=== PATIENT | female | born 1945 | race Caucasian/White ===

== ENCOUNTER 2018-09-10 13:31 | Inpatient (IN) | payer MEDICARE ==
[2018-09-10 14:11] LABS: Glucose,Whole Blood >600 mg/dL (75-99)
[2018-09-10] MEDS ORDERED: SODIUM CHLORIDE 0.9% 500 ML 500 ML IV STA ×2 (14:12→15:08)
--- NOTE | 2018-09-10 14:15 | ED ---
General Adult HPI - General Chief complaint: Recheck/Abnormal Lab/Rx Stated complaint: Diabetic Time Seen by Provider: 09/10/18 13:34 Source: patient, RN notes reviewed Mode of arrival: EMS Limitations: no limitations - History of Present Illness Initial comments: Patient is a pleasant 72-year-old female presenting to the emergency department with concerns for hyperglycemia. Patient states the past few days her blood sugars have been running high. Sometimes the blood sugars are too high to be read on the meter. Patient does admit to having dry mouth and increased thirst recently. No cough or dyspnea. No chest pain. No weakness or confusion. No polyuria. Patient is known diabetic since age 19. - Related Data Home Medications Medication Instructions Recorded Confirmed Donepezil [Aricept] 10 mg PO HS 09/10/18 09/10/18 INSULIN ASPART (NovoLOG) [NovoLOG See Protocol SQ TID 09/10/18 09/10/18 (formulary)] Insulin Degludec [Tresiba] 10 units SQ HS 09/10/18 09/10/18 Isosorbide Mononitrate ER [Imdur] 30 mg PO DAILY 09/10/18 09/10/18 Levothyroxine Sodium [Synthroid] 200 mcg PO DAILY 09/10/18 09/10/18 Lisinopril-Hctz 10-12.5 mg 0.5 tab PO DAILY 09/10/18 09/10/18 [Zestoretic 10-12.5] Memantine HCl [Memantine HCl ER] 28 mg PO DAILY 09/10/18 09/10/18 Sertraline [Zoloft] 25 mg PO DAILY 09/10/18 09/10/18 Simvastatin 40 mg PO HS 09/10/18 09/10/18 Allergies Allergy/AdvReac Type Severity Reaction Status Date / Time iodine Allergy Nausea & Verified 09/10/18 14:06 Vomiting Review of Systems ROS Statement: Those systems with pertinent positive or pertinent negative responses have been documented in the HPI. ROS Other: All systems not noted in ROS Statement are negative. Constitutional: Denies: fever Eyes: Denies: eye pain ENT: Denies: ear pain Respiratory: Denies: cough, dyspnea Cardiovascular: Denies: chest pain Endocrine: Reports: polydipsia. Denies: polyuria Gastrointestinal: Denies: abdominal pain Genitourinary: Denies: urgency Musculoskeletal: Denies: back pain Skin: Denies: rash Neurological: Denies: headache, weakness Past Medical History Past Medical History: Memory Impairment Additional Past Medical History / Comment(s): Type 1 DM (no insulin pump) History of Any Multi-Drug Resistant Organisms: None Reported Additional Past Surgical History / Comment(s): cyst removal Past Psychological History: Anxiety Smoking Status: Never smoker Past Alcohol Use History: Occasional Past Drug Use History: None Reported General Exam Limitations: no limitations General appearance: alert, in no apparent distress Head exam: Present: atraumatic Eye exam: Present: normal appearance, PERRL ENT exam: Present: normal oropharynx Neck exam: Present: normal inspection Respiratory exam: Present: normal lung sounds bilaterally Cardiovascular Exam: Present: regular rate, normal rhythm GI/Abdominal exam: Present: soft. Absent: tenderness Extremities exam: Present: normal inspection Neurological exam: Present: alert Psychiatric exam: Present: normal affect, normal mood Skin exam: Present: normal color Course Vital Signs 09/10/18 13:57 Temperature 98.2 F Pulse Rate 71 Respiratory 18 Rate Blood Pressure 105/31 O2 Sat by Pulse 100 Oximetry EKG Findings - EKG Comments: EKG Findings:: EKG shows paced rhythm at 63. MO 212. QRS 112. QT 446. QTc 46. Left axis. Normal QRS. No acute ST change. Medical Decision Making - Medical Decision Making Patient reevaluated and resting comfortably in bed. Patient and family updated on results and plan. Calculated osmolarity 331. Patient more likely ascending with HHS in DKA. Case was discussed in detail with . sheet will admit covering for hospital call. IV fluids have been provided. Insulin will also be provided. - Lab Data Result diagrams: 09/10/18 14:11 09/10/18 14:11 Lab Results 09/10/18 09/10/18 09/10/18 Range/Units 14:08 14:11 14:11 WBC 6.6 (3.8-10.6) k/uL RBC 3.30 L (3.80-5.40) m/uL Hgb 9.8 L (11.4-16.0) gm/dL Hct 34.5 (34.0-46.0) % MCV 104.4 H (80.0-100.0) fL MCH 29.5 (25.0-35.0) pg MCHC 28.3 L (31.0-37.0) g/dL RDW 13.2 (11.5-15.5) % Plt Count 239 (150-450) k/uL Neutrophils % 85 % Lymphocytes % 9 % Monocytes % 4 % Eosinophils % 0 % Basophils % 1 % Neutrophils # 5.6 (1.3-7.7) k/uL Lymphocytes # 0.6 L (1.0-4.8) k/uL Monocytes # 0.3 (0-1.0) k/uL Eosinophils # 0.0 (0-0.7) k/uL Basophils # 0.0 (0-0.2) k/uL Hypochromasia Marked Macrocytosis Slight Sodium 128 L (137-145) mmol/L Potassium 6.1 H* (3.5-5.1) mmol/L Chloride 91 L (98-107) mmol/L Carbon Dioxide 9 L* (22-30) mmol/L Anion Gap 28 mmol/L BUN 62 H (7-17) mg/dL Creatinine 1.74 H (0.52-1.04) mg/dL Est GFR (CKD-EPI)AfAm 34 (>60 ml/min/1.73 sqM) Est GFR (CKD-EPI)NonAf 29 (>60 ml/min/1.73 sqM) Glucose 957 H* (74-99) mg/dL POC Glucose (mg/dL) >600 H (75-99) mg/dL POC Glu Ballroom Dance Instructor ID Ene Lemons Osmolality (280-301) mosm/kg Calcium 9.6 (8.4-10.2) mg/dL Phosphorus 7.5 H (2.5-4.5) mg/dL Magnesium 2.1 (1.6-2.3) mg/dL Total Bilirubin 0.6 (0.2-1.3) mg/dL AST 19 (14-36) U/L ALT 22 (9-52) U/L Alkaline Phosphatase 59 (38-126) U/L Troponin I (0.000-0.034) ng/mL Total Protein 6.2 L (6.3-8.2) g/dL Albumin 4.0 (3.5-5.0) g/dL Acetone, Qual Positive (Negative) 09/10/18 09/10/18 Range/Units 14:11 14:11 WBC (3.8-10.6) k/uL RBC (3.80-5.40) m/uL Hgb (11.4-16.0) gm/dL Hct (34.0-46.0) % MCV (80.0-100.0) fL MCH (25.0-35.0) pg MCHC (31.0-37.0) g/dL RDW (11.5-15.5) % Plt Count (150-450) k/uL Neutrophils % % Lymphocytes % % Monocytes % % Eosinophils % % Basophils % % Neutrophils # (1.3-7.7) k/uL Lymphocytes # (1.0-4.8) k/uL Monocytes # (0-1.0) k/uL Eosinophils # (0-0.7) k/uL Basophils # (0-0.2) k/uL Hypochromasia Macrocytosis Sodium (137-145) mmol/L Potassium (3.5-5.1) mmol/L Chloride (98-107) mmol/L Carbon Dioxide (22-30) mmol/L Anion Gap mmol/L BUN (7-17) mg/dL Creatinine (0.52-1.04) mg/dL Est GFR (CKD-EPI)AfAm (>60 ml/min/1.73 sqM) Est GFR (CKD-EPI)NonAf (>60 ml/min/1.73 sqM) Glucose (74-99) mg/dL POC Glucose (mg/dL) (75-99) mg/dL POC Glu Ballroom Dance Instructor ID Osmolality 343 H* (280-301) mosm/kg Calcium (8.4-10.2) mg/dL Phosphorus (2.5-4.5) mg/dL Magnesium (1.6-2.3) mg/dL Total Bilirubin (0.2-1.3) mg/dL AST (14-36) U/L ALT (9-52) U/L Alkaline Phosphatase (38-126) U/L Troponin I 0.015 (0.000-0.034) ng/mL Total Protein (6.3-8.2) g/dL Albumin (3.5-5.0) g/dL Acetone, Qual (Negative) - Radiology Data Radiology results: image reviewed (Chest x-ray shows no acute process) Critical Care Time Critical Care Time: Yes Total Critical Care Time: 35 Disposition Clinical Impression: Hyperosmolar syndrome, Hyperglycemia Disposition: ADMITTED IP TO THIS HOSP Condition: Serious Is patient prescribed a controlled substance at d/c from ED?: No Referrals: Nonstaff,Physician [Primary Care Provider] - 1-2 days Decision Time: 15:49
[2018-09-10 14:24] LABS: Basophils % (A) 1 %; Eosinophils % (A) 0 %; HCT 34.5 % (34.0-46.0); HGB 9.8 gm/dL (11.4-16.0); Hypochromasia Marked; Lymphocytes # (A) 0.6 k/uL (1.0-4.8); Lymphocytes % (A) 9 %; MCH 29.5 pg (25.0-35.0); MCHC 28.3 g/dL (31.0-37.0); MCV 104.4 fL (80.0-100.0); Macrocytosis Slight; Mean Platelet Volume 8.2; Monocytes # (A) 0.3 k/uL (0-1.0); Monocytes % (A) 4 %; Neutrophils # (A) 5.6 k/uL (1.3-7.7); Neutrophils % (A) 85 %; Platelet Count 239 k/uL (150-450); RDW 13.2 % (11.5-15.5); WBC 6.6 k/uL (3.8-10.6)
[2018-09-10 14:50] LABS: ALT 22 U/L (9-52); AST 19 U/L (14-36); African American GFR (CKD) 34 (>60 ml/min/1.73 sqM); Alkaline Phosphatase 59 U/L (38-126); Anion Gap 28 mmol/L; Blood Urea Nitrogen 62 mg/dL (7-17); Calcium 9.6 mg/dL (8.4-10.2); Chloride 91 mmol/L (98-107); Magnesium 2.1 mg/dL (1.6-2.3); Phosphorus 7.5 mg/dL (2.5-4.5); Sodium 128 mmol/L (137-145); Total Bilirubin 0.6 mg/dL (0.2-1.3); Total Protein 6.2 g/dL (6.3-8.2)
[2018-09-10 15:01] LABS: Carbon Dioxide 9 mmol/L (22-30)
[2018-09-10 15:02] LABS: Glucose 957 mg/dL (74-99); Potassium 6.1 mmol/L (3.5-5.1)
[2018-09-10] MEDS ORDERED: SODIUM CHLORIDE 0.9% 1,000 ML IV STA (15:08)
--- NOTE | 2018-09-10 15:10 | XR ---
EXAMINATION TYPE: XR chest 2V DATE OF EXAM: 09/10/2018 COMPARISON: NONE HISTORY: Diabetes. Weakness. TECHNIQUE: Frontal and lateral views of the chest are obtained. FINDINGS: There is no heart failure nor confluent pneumonic infiltrate. Heart is mildly enlarged. Th ere is a left axillary pacemaker. There are chest leads. Costophrenic angles are clear. Bony thorax appears intact. IMPRESSION: No active cardiopulmonary disease.
[2018-09-10] MEDS ORDERED: INSULIN REGULAR BOLUS (FROM DRIP BAG) IV ONE (15:53)
[2018-09-10] MEDS: SODIUM CHLORIDE 0.9% 1,000 ML IV SCH ×2 (16:27→22:19)
[2018-09-10] MEDS: INSULIN REGULAR 100 UNIT in SODIUM CHLORIDE 0.9% 100 ML IV SCH (16:33)
[2018-09-10 17:07] LABS: Glucose,Whole Blood >600 mg/dL (75-99)
[2018-09-10 18:03] LABS: Glucose,Whole Blood >600 mg/dL (75-99)
[2018-09-10 18:05] VITALS: BMI 26.4
[2018-09-10 18:54] LABS: Glucose,Whole Blood >600 mg/dL (75-99)
[2018-09-10 19:19] LABS: Phosphorus 8.5 mg/dL (2.5-4.5); Potassium 5.3 mmol/L (3.5-5.1)
[2018-09-10 22:31] LABS: Phosphorus 4.9 mg/dL (2.5-4.5); Potassium 5.1 mmol/L (3.5-5.1)
[2018-09-11] MEDS: INSULIN REGULAR 100 UNIT in SODIUM CHLORIDE 0.9% 100 ML IV SCH (00:20)
[2018-09-11 01:04] LABS: Glucose,Whole Blood 336 mg/dL (75-99)
[2018-09-11] MEDS: D5-0.45% NACL WITH KCL 20MEQ/L 1,000 ML IV SCH ×3 (02:21→13:10)
[2018-09-11] MEDS: SODIUM CHLORIDE 0.9% 1,000 ML IV SCH ×3 (02:22→05:06)
[2018-09-11 02:39] LABS: Glucose,Whole Blood 213 mg/dL (75-99)
[2018-09-11 03:59] LABS: Glucose,Whole Blood 135 mg/dL (75-99)
[2018-09-11 03:59] LABS: Glucose,Whole Blood 164 mg/dL (75-99)
[2018-09-11 04:57] LABS: HCT 26.7 % (34.0-46.0); HGB 8.8 gm/dL (11.4-16.0); MCH 30.1 pg (25.0-35.0); MCHC 32.8 g/dL (31.0-37.0); Mean Platelet Volume 7.9; Platelet Count 221 k/uL (150-450); RBC 2.92 m/uL (3.80-5.40); RDW 13.3 % (11.5-15.5); WBC 8.7 k/uL (3.8-10.6)
[2018-09-11 05:01] LABS: MCV 91.7 fL (80.0-100.0)
[2018-09-11 05:05] LABS: Glucose,Whole Blood 122 mg/dL (75-99)
[2018-09-11 05:07] LABS: Phosphorus 3.7 mg/dL (2.5-4.5); Potassium 4.5 mmol/L (3.5-5.1)
[2018-09-11 06:35] LABS: Glucose,Whole Blood 107 mg/dL (75-99)
[2018-09-11 06:58] LABS: Glucose,Whole Blood 119 mg/dL (75-99)
[2018-09-11 08:23] LABS: Glucose,Whole Blood 130 mg/dL (75-99)
[2018-09-11 09:17] LABS: Glucose,Whole Blood 172 mg/dL (75-99)
--- NOTE | 2018-09-11 09:54 | P.HPIM ---
History of Present Illness This is a pleasant 72 years old female with past medical history of dementia/memory impairment, diabetes mellitus, hypothyroidism, coronary artery disease status post stent placement. Patient presents because her found her with altered mental status in the morning and he called 911. Patient states that she follows up with Dr. West's Marilee who changed her insulin regimen treated recently because her sugar was uncontrolled, she is taking no follow-up with sliding scale plus Tarceva insulin 10 units at bedtime. As per she has been forgetting to take her insulin at times, and other times she weighs 41- 2 hours before she takes her insulin. Yesterday morning patient says that she will cover and she was feeling tired she takes her sugar wasn't 400 but instead of taking her insulin she went back to sleep before her found her with altered mental status. Patient denies chest pain or dyspnea. No change in urine or bowel habits. No rash or redness. No headache or weakness or abnormal sensation. No coughing or respiratory symptoms. No dysuria. No fever Patient vitals stable, on admission her labs were abnormal showing increased creatinine of 1.7, unknown baseline, carbon dioxide 9, sugar was 957 elevated, anion gap was within normal limits at 28, sodium 128 in view of hyperglycemia, serum osmolalities elevated at 323, liver enzymes not elevated. Troponin is negative. And after therapy currently her creatinine came down to 1.5, sodium 135, glucose 107-172. EKG showing atrial paced rhythm. Chest x-ray: No acute process. On admission patient was admitted to the ICU, she was treated with IV fluids and insulin drip as per protocol. Patient showed interval improvement. Review of Systems CONSTITUTIONAL: No fever, no malaise, no fatigue. HEENT: No recent visual problems or hearing problems. Denied any sore throat. CARDIOVASCULAR: No orthopnea, PND, no palpitations, no syncope. PULMONARY: No shortness of breath, no cough, no hemoptysis. GASTROINTESTINAL: No diarrhea, no nausea, no vomiting, no abdominal pain. Normoactive bowel sounds. NEUROLOGICAL: No headaches, no weakness, no numbness. HEMATOLOGICAL: Denies any bleeding or petechiae. GENITOURINARY: Denies any burning micturition, frequency, or urgency. MUSCULOSKELETAL/RHEUMATOLOGICAL: Denies any joint pain, swelling, or any muscle pain. ENDOCRINE: Denies any polyuria or polydipsia. Past Medical History Past Medical History: Chest Pain / Angina, Dementia, Diabetes Mellitus, Memory Impairment, Thyroid Disorder Additional Past Medical History / Comment(s): Type 1 DM (no insulin pump), early stages of dementia History of Any Multi-Drug Resistant Organisms: None Reported Past Surgical History: Heart Catheterization With Stent Additional Past Surgical History / Comment(s): cyst removal, cath and stents placed while in [place] 2018, colonoscopy normal Past Anesthesia/Blood Transfusion Reactions: Postoperative Nausea & Vomiting (PONV) Date of Last Stent Placement:: 03/26/2018 Past Psychological History: Anxiety, Depression Smoking Status: Never smoker Past Alcohol Use History: Occasional Past Drug Use History: None Reported - Past Family History Mother Family Medical History: Cancer Father Family Medical History: Cancer, Coronary Artery Disease (CAD) Medications and Allergies Home Medications Medication Instructions Recorded Confirmed Type Donepezil [Aricept] 10 mg PO HS 09/10/18 09/10/18 History INSULIN ASPART (NovoLOG) [NovoLOG See Protocol SQ TID 09/10/18 09/10/18 History (formulary)] Insulin Degludec [Tresiba] 10 units SQ HS 09/10/18 09/10/18 History Isosorbide Mononitrate ER [Imdur] 30 mg PO DAILY 09/10/18 09/10/18 History Levothyroxine Sodium [Synthroid] 200 mcg PO DAILY 09/10/18 09/10/18 History Lisinopril-Hctz 10-12.5 mg 0.5 tab PO DAILY 09/10/18 09/10/18 History [Zestoretic 10-12.5] Memantine HCl [Memantine HCl ER] 28 mg PO DAILY 09/10/18 09/10/18 History Sertraline [Zoloft] 25 mg PO DAILY 09/10/18 09/10/18 History Simvastatin 40 mg PO HS 09/10/18 09/10/18 History Allergies Allergy/AdvReac Type Severity Reaction Status Date / Time iodine Allergy Nausea & Verified 09/10/18 14:06 Vomiting Physical Exam Vitals: Vital Signs Temp Pulse Pulse Resp BP BP Pulse Ox 09/11/18 08:00 60 17 107/45 100 09/11/18 07:00 60 15 110/48 100 09/11/18 06:00 60 15 116/50 99 09/11/18 05:00 60 19 113/70 94 L 09/11/18 04:00 98.2 F 64 19 90/40 98 09/11/18 03:00 63 18 103/47 100 09/11/18 02:00 61 19 104/44 99 09/11/18 01:00 64 18 105/42 99 09/11/18 00:18 67 11 L 108/42 97 09/11/18 00:00 65 20 116/47 94 L 09/10/18 23:00 67 14 124/45 93 L 09/10/18 22:30 69 17 130/46 95 09/10/18 22:00 70 17 126/44 96 09/10/18 21:30 73 16 111/44 96 09/10/18 21:00 74 18 123/47 96 09/10/18 20:30 68 18 120/54 98 09/10/18 20:00 98.0 F 70 10 L 122/46 97 09/10/18 19:30 71 18 109/36 95 09/10/18 19:00 73 14 114/48 92 L 09/10/18 18:30 70 27 H 126/52 96 09/10/18 18:00 75 21 114/48 98 09/10/18 17:54 97.5 F L 73 18 121/46 98 09/10/18 17:30 71 11 L 104/34 09/10/18 17:08 99 09/10/18 17:00 98.1 F 61 18 107/55 09/10/18 15:30 59 L 20 109/38 100 09/10/18 15:00 66 20 101/34 100 09/10/18 14:30 65 16 105/31 100 09/10/18 14:00 64 132/108 100 09/10/18 13:57 98.2 F 71 18 105/31 100 09/10/18 13:51 59 L 100 Intake and Output 09/10/18 09/11/18 09/11/18 22:59 06:59 14:59 Intake Total 1146.244 9667.781 450 Output Total 700 1 Balance 1039.121 761.781 449 Intake: Intake, IV Titration 4210.886 2332.781 450 Amount D5-0.45% NaCl with KCl 600 450 20Meq/l 1,000 ml @ 150 mls/hr IV .[id number] [facility] Rx# :[id number] Insulin Regular 100 unit 39.121 61.781 In Sodium Chloride 0.9% 100 ml @ 0.1 UNITS/KG/HR 7.238 mls/hr IV .[id number] [facility] Rx#:[id number] Sodium Chloride 0.9% 1, 1000 800 000 ml @ 200 mls/hr IV . Q5H [facility] Rx#:[id number] Output: Urine 700 Urine/Stool Mix 1 Other: # Voids 1 # Bowel Movements 1 1 Weight 79 kg GENERAL: The patient is alert and oriented x3, not in any acute distress. Well developed, well nourished. HEENT: Pupils are round and equally reacting to light. EOMI. No scleral icterus. No conjunctival pallor. Normocephalic, atraumatic. No pharyngeal erythema. No thyromegaly. CARDIOVASCULAR: S1 and S2 present. No murmurs, rubs, or gallops. PULMONARY: Chest is clear to auscultation, no wheezing or crackles. ABDOMEN: Soft, nontender, nondistended, normoactive bowel sounds. No palpable organomegaly. MUSCULOSKELETAL: No joint swelling or deformity. EXTREMITIES: No cyanosis, clubbing, or pedal edema. NEUROLOGICAL: Gross neurological examination did not reveal any focal deficits. SKIN: No rashes. Results CBC & Chem 7: 09/11/18 04:22 09/11/18 04:22 Labs: Abnormal Lab Results - Last 24 Hours (Table) 09/10/18 09/10/18 09/10/18 Range/Units 14:08 14:11 14:11 RBC 3.30 L (3.80-5.40) m/uL Hgb 9.8 L (11.4-16.0) gm/dL Hct (34.0-46.0) % MCV 104.4 H (80.0-100.0) fL MCHC 28.3 L (31.0-37.0) g/dL Lymphocytes # 0.6 L (1.0-4.8) k/uL Sodium 128 L (137-145) mmol/L Potassium 6.1 H* (3.5-5.1) mmol/L Chloride 91 L (98-107) mmol/L Carbon Dioxide 9 L* (22-30) mmol/L BUN 62 H (7-17) mg/dL Creatinine 1.74 H (0.52-1.04) mg/dL Glucose 957 H* (74-99) mg/dL POC Glucose (mg/dL) >600 H (75-99) mg/dL Osmolality (280-301) mosm/kg Phosphorus 7.5 H (2.5-4.5) mg/dL Total Protein 6.2 L (6.3-8.2) g/dL 09/10/18 09/10/18 09/10/18 Range/Units 14:11 17:04 17:49 RBC (3.80-5.40) m/uL Hgb (11.4-16.0) gm/dL Hct (34.0-46.0) % MCV (80.0-100.0) fL MCHC (31.0-37.0) g/dL Lymphocytes # (1.0-4.8) k/uL Sodium (137-145) mmol/L Potassium (3.5-5.1) mmol/L Chloride (98-107) mmol/L Carbon Dioxide (22-30) mmol/L BUN (7-17) mg/dL Creatinine (0.52-1.04) mg/dL Glucose (74-99) mg/dL POC Glucose (mg/dL) >600 H >600 H (75-99) mg/dL Osmolality 343 H* (280-301) mosm/kg Phosphorus (2.5-4.5) mg/dL Total Protein (6.3-8.2) g/dL 09/10/18 09/10/18 09/10/18 Range/Units 18:40 18:50 19:18 RBC (3.80-5.40) m/uL Hgb (11.4-16.0) gm/dL Hct (34.0-46.0) % MCV (80.0-100.0) fL MCHC (31.0-37.0) g/dL Lymphocytes # (1.0-4.8) k/uL Sodium 129 L (137-145) mmol/L Potassium 5.3 H (3.5-5.1) mmol/L Chloride 93 L (98-107) mmol/L Carbon Dioxide 10 L (22-30) mmol/L BUN 64 H (7-17) mg/dL Creatinine 2.03 H (0.52-1.04) mg/dL Glucose 814 H* 760 H* (74-99) mg/dL POC Glucose (mg/dL) >600 H (75-99) mg/dL Osmolality (280-301) mosm/kg Phosphorus 8.5 H (2.5-4.5) mg/dL Total Protein (6.3-8.2) g/dL 09/10/18 09/10/18 09/10/18 Range/Units 20:57 22:09 23:06 RBC (3.80-5.40) m/uL Hgb (11.4-16.0) gm/dL Hct (34.0-46.0) % MCV (80.0-100.0) fL MCHC (31.0-37.0) g/dL Lymphocytes # (1.0-4.8) k/uL Sodium 132 L (137-145) mmol/L Potassium (3.5-5.1) mmol/L Chloride 97 L (98-107) mmol/L Carbon Dioxide 20 L (22-30) mmol/L BUN 67 H (7-17) mg/dL Creatinine 1.79 H (0.52-1.04) mg/dL Glucose 616 H* 513 H* 423 H (74-99) mg/dL POC Glucose (mg/dL) (75-99) mg/dL Osmolality (280-301) mosm/kg Phosphorus 4.9 H (2.5-4.5) mg/dL Total Protein (6.3-8.2) g/dL 09/11/18 09/11/18 09/11/18 Range/Units 00:17 01:01 02:01 RBC (3.80-5.40) m/uL Hgb (11.4-16.0) gm/dL Hct (34.0-46.0) % MCV (80.0-100.0) fL MCHC (31.0-37.0) g/dL Lymphocytes # (1.0-4.8) k/uL Sodium (137-145) mmol/L Potassium (3.5-5.1) mmol/L Chloride (98-107) mmol/L Carbon Dioxide (22-30) mmol/L BUN (7-17) mg/dL Creatinine (0.52-1.04) mg/dL Glucose 338 H (74-99) mg/dL POC Glucose (mg/dL) 336 H 213 H (75-99) mg/dL Osmolality (280-301) mosm/kg Phosphorus (2.5-4.5) mg/dL Total Protein (6.3-8.2) g/dL 09/11/18 09/11/18 09/11/18 Range/Units 02:53 03:56 04:22 RBC 2.92 L (3.80-5.40) m/uL Hgb 8.8 L (11.4-16.0) gm/dL Hct 26.7 L (34.0-46.0) % MCV (80.0-100.0) fL MCHC (31.0-37.0) g/dL Lymphocytes # (1.0-4.8) k/uL Sodium (137-145) mmol/L Potassium (3.5-5.1) mmol/L Chloride (98-107) mmol/L Carbon Dioxide (22-30) mmol/L BUN (7-17) mg/dL Creatinine (0.52-1.04) mg/dL Glucose (74-99) mg/dL POC Glucose (mg/dL) 164 H 135 H (75-99) mg/dL Osmolality (280-301) mosm/kg Phosphorus (2.5-4.5) mg/dL Total Protein (6.3-8.2) g/dL 09/11/18 09/11/18 09/11/18 Range/Units 04:22 05:01 06:09 RBC (3.80-5.40) m/uL Hgb (11.4-16.0) gm/dL Hct (34.0-46.0) % MCV (80.0-100.0) fL MCHC (31.0-37.0) g/dL Lymphocytes # (1.0-4.8) k/uL Sodium 135 L (137-145) mmol/L Potassium (3.5-5.1) mmol/L Chloride (98-107) mmol/L Carbon Dioxide (22-30) mmol/L BUN 59 H (7-17) mg/dL Creatinine 1.52 H (0.52-1.04) mg/dL Glucose 127 H (74-99) mg/dL POC Glucose (mg/dL) 122 H 107 H (75-99) mg/dL Osmolality (280-301) mosm/kg Phosphorus (2.5-4.5) mg/dL Total Protein (6.3-8.2) g/dL 09/11/18 09/11/18 09/11/18 Range/Units 06:55 07:58 09:13 RBC (3.80-5.40) m/uL Hgb (11.4-16.0) gm/dL Hct (34.0-46.0) % MCV (80.0-100.0) fL MCHC (31.0-37.0) g/dL Lymphocytes # (1.0-4.8) k/uL Sodium (137-145) mmol/L Potassium (3.5-5.1) mmol/L Chloride (98-107) mmol/L Carbon Dioxide (22-30) mmol/L BUN (7-17) mg/dL Creatinine (0.52-1.04) mg/dL Glucose (74-99) mg/dL POC Glucose (mg/dL) 119 H 130 H 172 H (75-99) mg/dL Osmolality (280-301) mosm/kg Phosphorus (2.5-4.5) mg/dL Total Protein (6.3-8.2) g/dL Thrombosis Risk Factor Assmnt - Choose All That Apply Each Risk Factor Represents 2 Points: Age 61-74 years Thrombosis Risk Factor Assessment Total Risk Factor Score: 2 Thrombosis Risk Factor Assessment Level: Low Risk Assessment and Plan Assessment: Diabetic ketoacidosis, anion gap is closed Diabetes mellitus with uncontrolled hypercalcemia Dementia/memory impairment Hyperkalemia, resolved Acute kidney injury, improving Pseudohyponatremia, related to hyperglycemia. Hypothyroidism Essential hypertension Hyperlipidemia History of depression Plan: This is a pleasant 72 years old female who presents with DKA, anion gap is closed, continue with insulin sliding scale and and long-acting insulin, Levemir 10 units subcu. Follow-up sugar level closely. Continue with gentle hydration. Resume diet. I discussed the importance of adherence to therapy and patient both verbalize understanding and acceptance. I discussed the need for care for the patient and the thinks patient needs to assisted placement, the would consider it as well. We'll call foster care social worker as well as physical therapy evaluation. Labs and medication were reviewed.. Continue same treatment. Continue with symptomatic treatment. Resume home medication. Monitor lytes and vitals. DVT and GI prophylaxis. Further recommendations of the clinical course of the patient DVT prophylaxis: Subcutaneous heparin GI Prophylaxis: Pepcid PT/OT: Pending Prognosis is guarded
[2018-09-11] MEDS: ISOSORBIDE MONONITRATE ER 30 MG TAB.ER.24H PO SCH (10:00)
[2018-09-11] MEDS: LEVOTHYROXINE 100 MCG TAB PO SCH (10:00)
[2018-09-11] MEDS: INSULIN DETEMIR (LEVEMIR) 100 UNIT/ML SYR SQ SCH (10:01)
[2018-09-11] MEDS: SERTRALINE 25 MG TAB PO SCH (10:01)
[2018-09-11] MEDS: MEMANTINE 10 MG TAB PO SCH ×2 (10:01→21:50)
[2018-09-11] MEDS ORDERED: DRY MOUTH SPRAY 44.3 SPRAY/44.3 ML SPRAY MUCOUS MEM PRN (10:26)
--- NOTE | 2018-09-11 11:47 | CONS ---
CONSULTATION DATE OF SERVICE: September 11, 2018 This is a very pleasant 72-year-old female who presents to the emergency department because of hyperglycemia. Apparently she states that her blood sugars have been very elevated over the last couple of days. Apparently her meter only reached her certain blood sugar and may times the meter reading blood sugar which ix an excess of the maximum amount on her meter. What that number is I do not know. She also apparently complaining of being thirsty and having a dry mouth. She was not having any fever or chills. No chest pain or chest discomfort. There was no weakness or confusion. There is no polyuria. The patient has been a diabetic since age 19. Part of the problem with this lady is that she is very demented and she is not a very good historian. She takes both Namenda and Aricept for her dementia. In addition, she has a history of hyperlipidemia, diabetes, hypertension and hypothyroidism. Currently, the patient is on D5 at 0.45 at 150 mL an hour and insulin drip at only 1 unit an hour. Her blood sugars are near normal. Her anion gap is normal. Her bicarbonates 24. The patient is being managed for the hospital service. The insulin drip can be turned off after the patient received some regular insulin subcu. Typically they will turn the drip off about 30 or 45 minutes after that. The patient can be transferred out of the unit probably later today. When talking to the patient in terms of why her sugars became elevated, it is not clear to me that she actually understands what is going on and I am not sure that she actually manages her sugars particularly well anyway. HOME MEDICATIONS: Include Aricept, NovoLog insulin, Tarceva, Imdur, Synthroid, Zestoretic, Namenda, Zoloft, and simvastatin. ALLERGIES: IODINE. MEDICAL HISTORY: As mentioned above includes dementia, diabetes, hyperlipidemia, hypertension and hypothyroidism. SURGICAL HISTORY: Includes cyst removal. SOCIAL HISTORY: Negative for tobacco. She drinks very rarely. No illicit drug use. FAMILY HISTORY: Noncontributory. She states that both her mother and father were relatively healthy. They had only minor medical problems and her siblings likewise only had minor medical problems. REVIEW OF SYSTEMS: CONSTITUTIONAL negative. NEUROLOGIC negative. HEENT: Dry mouth. CARDIOVASCULAR negative. PULMONARY negative. GI decreased appetite. : Negative. RHEUMATOLOGIC: Negative. IMMUNOLOGIC negative. ENDOCRINOLOGIC: Elevated blood sugars. PHYSICAL EXAMINATION: VITAL SIGNS: Current vital signs are reviewed, temperature 98.2, heart rate 60, respiratory rate 15, blood pressure 110/48, mean 68, saturations on room air 100%. GENERAL: Appears in no acute distress. HEENT examination is grossly unremarkable. Mucous membranes are bit dry. NECK: Supple. Full range of motion. No adenopathy, thyromegaly or neck vein distention. CARDIOVASCULAR examination reveals regular rhythm and rate. Heart rate 63, S1, S2 normal. No S3, S4, or murmur. LUNGS: Reveal clear breath sounds. No wheezes or rhonchi. ABDOMEN: Soft. Bowel sounds are heard. EXTREMITIES are intact. No cyanosis, clubbing, or edema. SKIN: Without rash. Skin turgor is reasonable. NEUROLOGIC examination is brief but nonfocal. She is alert and oriented x3. The patient does move all 4 extremities well. CURRENT LABORATORY DATA: Includes a white count of 8.7, hemoglobin 8.8, hematocrit 26.7, platelet count normal. Sodium 135, potassium 4.5, chloride 103, CO2 24, anion gap is 8, BUN and creatinine were 59 and 1.52. Her osmolarity on admission was 343. Acetone was positive. The rest of her labs look pretty good. Her chest x-ray was normal. Microbiologic studies are negative. Her medications are reviewed. ASSESSMENT: 1. Diabetic ketoacidosis, much improved. The etiology of which possibly related to noncompliance. 2. Hyperlipidemia. 3. History of diabetes since the age of 19. 4. History of dementia, currently on Aricept and Namenda. 5. Hypertension. 6. Hypothyroidism. PLAN: The patient could get some regular insulin subcu 10 units. Drip should be turned off 30-45 minutes later. The patient can be managed in standard fashion with NovoLog sliding scale and slowly addition of her diabetic medications back. We will leave that to the hospital service. The patient can be transferred out of the unit. No additional recommendations are made. Prognosis is guarded. We will continue to follow as needed. MMEZEQUIEL / ELI: [id number] /
[2018-09-11 13:03] LABS: Phosphorus 4.3 mg/dL (2.5-4.5); Potassium 5.7 mmol/L (3.5-5.1)
[2018-09-11 13:10] LABS: Glucose,Whole Blood 313 mg/dL (75-99)
[2018-09-11] MEDS: INSULIN ASPART (NovoLOG) 100 UNIT/ML VIAL SQ SCH ×3 (13:11→21:50)
[2018-09-11 14:41] LABS: Amorphous Sediment,Urine Rare /hpf; Appearance,Urine Clear (Clear); Bacteria,Urine Rare /hpf; Bilirubin,Urine Negative (Negative); Blood,Urine Trace (Negative); Color,Urine Light Yellow; Glucose,Urine (UA) 3+ (Negative); Ketones,Urine 1+ (Negative); Leukocyte Esterase,Urine Negative (Negative); Mucus,Urine Rare /hpf; Nitrite,Urine Negative (Negative); Protein,Urine Negative (Negative); RBC,Urine 1 /hpf (0-5); Specific Gravity,Urine 1.006 (1.001-1.035); Squamous Epithelial Cell,Urine <1 /hpf (0-4); Urobilinogen,Urine <2.0 mg/dL (<2.0); WBC,Urine <1 /hpf (0-5)
[2018-09-11 17:35] LABS: Glucose,Whole Blood 235 mg/dL (75-99)
[2018-09-11 21:04] LABS: Glucose,Whole Blood 235 mg/dL (75-99)
[2018-09-11] MEDS: DONEPEZIL 10 MG TAB PO SCH (21:49)
[2018-09-11] MEDS: ATORVASTATIN 20 MG TAB PO SCH (21:49)
[2018-09-11] MEDS: HEPARIN SODIUM,PORCINE 5,000 UNIT/ML 1 ML VIAL SQ SCH (21:50)
[2018-09-11] MEDS: FAMOTIDINE 20 MG/2 ML VIAL IV SCH (21:50)
[2018-09-12 05:28] LABS: Basophils % (A) 0 %; Eosinophils # (A) 0.1 k/uL (0-0.7); Eosinophils % (A) 1 %; HCT 30.8 % (34.0-46.0); HGB 9.6 gm/dL (11.4-16.0); Lymphocytes # (A) 1.3 k/uL (1.0-4.8); Lymphocytes % (A) 20 %; MCH 29.4 pg (25.0-35.0); MCHC 31.3 g/dL (31.0-37.0); MCV 94.2 fL (80.0-100.0); Mean Platelet Volume 7.7; Monocytes # (A) 0.4 k/uL (0-1.0); Monocytes % (A) 6 %; Neutrophils # (A) 4.9 k/uL (1.3-7.7); Neutrophils % (A) 72 %; Platelet Count 220 k/uL (150-450); RBC 3.27 m/uL (3.80-5.40); RDW 13.5 % (11.5-15.5); WBC 6.8 k/uL (3.8-10.6)
[2018-09-12 05:40] LABS: Calcium 9.3 mg/dL (8.4-10.2); Potassium 4.9 mmol/L (3.5-5.1)
[2018-09-12] MEDS: LEVOTHYROXINE 100 MCG TAB PO SCH (06:49)
[2018-09-12 06:51] LABS: Glucose,Whole Blood 363 mg/dL (75-99)
[2018-09-12] MEDS: INSULIN ASPART (NovoLOG) 100 UNIT/ML VIAL SQ SCH ×4 (07:04→20:42)
[2018-09-12] MEDS: INSULIN DETEMIR (LEVEMIR) 100 UNIT/ML SYR SQ SCH (07:19)
[2018-09-12 08:14] LABS: Glucose,Whole Blood 340 mg/dL (75-99)
[2018-09-12] MEDS ORDERED: INSULIN ASPART (NovoLOG) 100 UNIT/ML VIAL SQ SCH (08:15)
[2018-09-12] MEDS: ISOSORBIDE MONONITRATE ER 30 MG TAB.ER.24H PO SCH (08:40)
[2018-09-12] MEDS: HEPARIN SODIUM,PORCINE 5,000 UNIT/ML 1 ML VIAL SQ SCH ×2 (08:41→20:41)
[2018-09-12] MEDS: LISINOPRIL-HCTZ 10-12.5 MG 1 EACH TAB PO SCH (08:41)
[2018-09-12] MEDS: FAMOTIDINE 20 MG/2 ML VIAL IV SCH (08:41)
[2018-09-12] MEDS: MEMANTINE 10 MG TAB PO SCH ×2 (08:41→20:39)
[2018-09-12] MEDS: SERTRALINE 25 MG TAB PO SCH (08:42)
--- NOTE | 2018-09-12 09:05 | P.PN ---
Subjective This is a pleasant 72 years old female with past medical history of dementia/memory impairment, diabetes mellitus, hypothyroidism, coronary artery d isease status post stent placement. Patient presents because her found her with altered mental status in the morning and he called 911. Patient states that she follows up with Dr. West's Marilee who changed her insulin regimen treated recently because her sugar was uncontrolled, she is taking no follow-up with sliding scale plus Tarceva insulin 10 units at bedtime. As per she has been forgetting to take her insulin at times, and other times she weighs 41- 2 hours before she takes her insulin. Yesterday morning patient says that she will cover and she was feeling tired she takes her sugar wasn't 400 but instead of taking her insulin she went back to sleep before her found her with altered mental status. Patient denies chest pain or dyspnea. No change in urine or bowel habits. No rash or redness. No headache or weakness or abnormal sensation. No coughing or respiratory symptoms. No dysuria. No fever Patient vitals stable, on admission her labs were abnormal showing increased creatinine of 1.7, unknown baseline, carbon dioxide 9, sugar was 957 elevated, anion gap was within normal limits at 28, sodium 128 in view of hyperglycemia, serum osmolalities elevated at 323, liver enzymes not elevated. Troponin is negative. And after therapy currently her creatinine came down to 1.5, sodium 135, glucose 107-172. EKG showing atrial paced rhythm. Chest x-ray: No acute process. On admission patient was admitted to the ICU, she was treated with IV fluids and insulin drip as per protocol. Patient showed interval improvement. 09/12/2018 Patient feels dizzy but no other complaint. She denies chest pain or dyspnea. No abdominal pain. No change in urine or bowel habits. Her vitals looks stable. Hemoglobin is stable at 9.6. Creatinine is coming down to 1.2. She remains in the ICU currently and her sugar has been running in 300, she got 10 units this morning of Levemir and they going to increase the dose to 15 units tonight as well as 5 units with meals. Discussed with patient and are still interested in physical therapy evaluation and possible ECF placement for long-term care versus rehab, As patient has memory impairment which affects her ability to take her medication. squadron worker was consulted Review of systems CONSTITUTIONAL: No fever, no malaise, no fatigue. HEENT: No recent visual problems or hearing problems. Denied any sore throat. CARDIOVASCULAR: No orthopnea, PND, no palpitations, no syncope. PULMONARY: No shortness of breath, no cough, no hemoptysis. GASTROINTESTINAL: No diarrhea, no nausea, no vomiting, no abdominal pain. Normoactive bowel sounds. NEUROLOGICAL: No headaches, no weakness, no numbness. HEMATOLOGICAL: Denies any bleeding or petechiae. GENITOURINARY: Denies any burning micturition, frequency, or urgency. MUSCULOSKELETAL/RHEUMATOLOGICAL: Denies any joint pain, swelling, or any muscle pain. ENDOCRINE: Denies any polyuria or polydipsia. Active Medications Generic Name Dose Route Start Last Admin Trade Name Freq PRN Reason Stop Dose Admin Atorvastatin Calcium 20 mg 09/11/18 21:00 09/11/18 21:49 Lipitor PO 20 mg HS GILSON Administration Donepezil HCl 10 mg 09/11/18 21:00 09/11/18 21:49 Aricept PO 10 mg HS GILSON Administration Famotidine 20 mg 09/11/18 21:00 09/12/18 08:41 Pepcid IV 20 mg DAILY GILSON Administration Lisinopril/HCTZ 0.5 each 09/12/18 09:00 09/12/18 08:41 Zestoretic 10-12.5 PO 0.5 each DAILY GILSON Administration Heparin Sodium (Porcine) 5,000 unit 09/11/18 21:00 09/12/18 08:41 Heparin SQ 5,000 unit Q12HR GILSON Administration Insulin Aspart 0 unit 09/11/18 12:30 09/12/18 07:04 Novolog SQ 6 unit ACHS GILSON Administration Protocol Insulin Aspart 5 unit 09/12/18 08:15 09/12/18 08:30 Novolog SQ 5 unit AC-TID GILSON Administration Insulin Detemir 15 unit 09/12/18 21:00 Levemir SQ 2100 GILSON Isosorbide Mononitrate 30 mg 09/11/18 09:30 09/12/18 08:40 Imdur PO 30 mg DAILY GILSON Administration Levothyroxine Sodium 200 mcg 09/11/18 09:30 09/12/18 06:49 Synthroid PO 200 mcg DAILY@0630 GILSON Administration Memantine 10 mg 09/11/18 09:45 09/12/18 08:41 Namenda PO 10 mg BID GILSON Administration Saliva Substitute 1 spray 09/11/18 10:26 Mouthkote Solution MUCOUS MEM QID PRN Dry Mouth Sertraline HCl 25 mg 09/11/18 09:30 09/12/18 08:42 Zoloft PO 25 mg DAILY GILSON Administration Objective - Vital Signs Vital signs: Vital Signs Temp 98.4 F 09/12/18 04:00 Pulse 63 09/12/18 04:00 Resp 15 09/12/18 04:00 BP 123/57 09/12/18 04:00 Pulse Ox 96 09/12/18 04:00 Intake & Output 09/11/18 09/12/18 09/12/18 18:59 06:59 18:59 Intake Total 1301.942 600 Output Total 801 850 Balance 500.942 -250 Weight 79 kg 79.8 kg Intake: Intake, IV Titration 901.942 150 Amount D5-0.45% NaCl with KCl 900 150 20Meq/l 1,000 ml @ 50 mls /hr IV .Q20H GILSON Rx#: [id number] Insulin Regular 100 unit 1.942 In Sodium Chloride 0.9% 100 ml @ 0.1 UNITS/KG/HR 7.238 mls/hr IV .[id number] GILSON Rx#:[id number] Oral 400 450 Output: Urine 800 850 Urine/Stool Mix 1 Other: # Voids 1 # Bowel Movements 1 1 - Exam GENERAL: The patient is alert and oriented x3, not in any acute distress. Well developed, well nourished. HEENT: Pupils are round and equally reacting to light. EOMI. No scleral icterus. No conjunctival pallor. Normocephalic, atraumatic. No pharyngeal erythema. No thyromegaly. CARDIOVASCULAR: S1 and S2 present. No murmurs, rubs, or gallops. PULMONARY: Chest is clear to auscultation, no wheezing or crackles. ABDOMEN: Soft, nontender, nondistended, normoactive bowel sounds. No palpable organomegaly. MUSCULOSKELETAL: No joint swelling or deformity. EXTREMITIES: No cyanosis, clubbing, or pedal edema. NEUROLOGICAL: Gross neurological examination did not reveal any focal deficits. SKIN: No rashes. - Labs CBC & Chem 7: 09/12/18 04:56 09/12/18 04:56 Labs: Abnormal Lab Results - Last 24 Hours (Table) 09/11/18 09/11/18 09/11/18 Range/Units 09:13 12:28 13:07 RBC (3.80-5.40) m/uL Hgb (11.4-16.0) gm/dL Hct (34.0-46.0) % Sodium 135 L (137-145) mmol/L Potassium 5.7 H (3.5-5.1) mmol/L BUN 51 H (7-17) mg/dL Creatinine 1.39 H (0.52-1.04) mg/dL Glucose (74-99) mg/dL POC Glucose (mg/dL) 172 H 313 H (75-99) mg/dL Urine Glucose (UA) (Negative) Urine Ketones (Negative) Urine Blood (Negative) Amorphous Sediment (None) /hpf Urine Bacteria (None) /hpf Urine Mucus (None) /hpf 09/11/18 09/11/18 09/11/18 Range/Units 14:20 17:08 21:00 RBC (3.80-5.40) m/uL Hgb (11.4-16.0) gm/dL Hct (34.0-46.0) % Sodium (137-145) mmol/L Potassium (3.5-5.1) mmol/L BUN (7-17) mg/dL Creatinine (0.52-1.04) mg/dL Glucose (74-99) mg/dL POC Glucose (mg/dL) 235 H 235 H (75-99) mg/dL Urine Glucose (UA) 3+ H (Negative) Urine Ketones 1+ H (Negative) Urine Blood Trace H (Negative) Amorphous Sediment Rare H (None) /hpf Urine Bacteria Rare H (None) /hpf Urine Mucus Rare H (None) /hpf 09/12/18 09/12/18 09/12/18 Range/Units 04:56 04:56 06:47 RBC 3.27 L (3.80-5.40) m/uL Hgb 9.6 L (11.4-16.0) gm/dL Hct 30.8 L (34.0-46.0) % Sodium (137-145) mmol/L Potassium (3.5-5.1) mmol/L BUN 45 H (7-17) mg/dL Creatinine 1.23 H (0.52-1.04) mg/dL Glucose 305 H (74-99) mg/dL POC Glucose (mg/dL) 363 H (75-99) mg/dL Urine Glucose (UA) (Negative) Urine Ketones (Negative) Urine Blood (Negative) Amorphous Sediment (None) /hpf Urine Bacteria (None) /hpf Urine Mucus (None) /hpf 09/12/18 Range/Units 08:00 RBC (3.80-5.40) m/uL Hgb (11.4-16.0) gm/dL Hct (34.0-46.0) % Sodium (137-145) mmol/L Potassium (3.5-5.1) mmol/L BUN (7-17) mg/dL Creatinine (0.52-1.04) mg/dL Glucose (74-99) mg/dL POC Glucose (mg/dL) 340 H (75-99) mg/dL Urine Glucose (UA) (Negative) Urine Ketones (Negative) Urine Blood (Negative) Amorphous Sediment (None) /hpf Urine Bacteria (None) /hpf Urine Mucus (None) /hpf Assessment and Plan Assessment: Diabetic ketoacidosis, anion gap is closed Diabetes mellitus with uncontrolled hypercalcemia Dementia/memory impairment Hyperkalemia, resolved Acute kidney injury, improving Pseudohyponatremia, related to hyperglycemia. Hypothyroidism Essential hypertension Hyperlipidemia History of depression Plan: This is a pleasant 72 years old female who presents with DKA, anion gap is closed, continue with insulin sliding scale and and long-acting insulin, Levemir 15 units subcu, plus short-acting insulin with meals, 5 units.. Follow-up sugar level closely. Encourage oral hydration. Resume diet. I discussed the importance of adherence to therapy and patient both verbalize understanding and acceptance. I discussed the need for care for the patient and the thinks patient needs to half-way placement, the would consider it as well. We'll call group social worker as well as physical therapy evaluation. Labs and medication were reviewed.. Continue same treatment. Continue with symptomatic treatment. Resume home medication. Monitor lytes and vitals. DVT and GI prophylaxis. Further recommendations of the clinical course of the patient DVT prophylaxis: Subcutaneous heparin GI Prophylaxis: Pepcid PT/OT: Pending Prognosis is guarded
[2018-09-12 09:58] LABS: Hemoglobin A1C 11.5 % (4.0-6.0)
--- NOTE | 2018-09-12 10:14 | P.PN ---
Subjective Progress Note Date: 09/12/18 Principal diagnosis: Diabetic ketoacidosis, improved On 09/12/2018 patient seen in follow-up in intensive care unit, she is awake and alert, in no acute distress, she is on room air, vital signs are stable, room air pulse ox is 97%. Patient has been transitioned to Levemir and Humalog, and her anion gap has closed. Today's labs have been reviewed, showing white blood cell, 6.8, hemoglobin of 9.6, electrolyte are within normal limits, BUN of 45, creatinine is 1.23. She is tolerating oral intake, no nausea no vomiting no diarrhea. Afebrile. She has been ambulating about the room, no specific complaints. Apparently discharge planning is working on discharge to long-term rehab, in view of memory impairment and her ability to take her medications as ordered. Social work has been consulted. Objective - Vital Signs Vital signs: Vital Signs Temp 97.9 F 09/12/18 08:00 Pulse 70 09/12/18 08:00 Resp 20 09/12/18 08:00 BP 126/53 09/12/18 08:00 Pulse Ox 97 09/12/18 08:00 Intake & Output 09/11/18 09/12/18 09/12/18 18:59 06:59 18:59 Intake Total 1301.942 600 Output Total 801 850 Balance 500.942 -250 Weight 79 kg 79.8 kg Intake: Intake, IV Titration 901.942 150 Amount D5-0.45% NaCl with KCl 900 150 20Meq/l 1,000 ml @ 50 mls /hr IV .Q20H GILSON Rx#: [id number] Insulin Regular 100 unit 1.942 In Sodium Chloride 0.9% 100 ml @ 0.1 UNITS/KG/HR 7.238 mls/hr IV .[id number] GILSON Rx#:[id number] Oral 400 450 Output: Urine 800 850 Urine/Stool Mix 1 Other: # Voids 1 1 # Bowel Movements 1 1 1 - Exam GENERAL EXAM: Alert, pleasant 72-year-old white female room air comfortable in no apparent distress. HEAD: Normocephalic/atraumatic. EYES: Normal reaction of pupils, equal size. Conjunctiva pink, sclera white. NOSE: Clear with pink turbinates. THROAT: No erythema or exudates. NECK: No masses, no JVD, no thyroid enlargement, no adenopathy. CHEST: No chest wall deformity. Symmetrical expansion. LUNGS: Equal air entry with no crackles, wheeze, rhonchi or dullness. CVS: Regular rate and rhythm, normal S1 and S2, no gallops, no murmurs, no rubs ABDOMEN: Soft, nontender. No hepatosplenomegaly, normal bowel sounds, no guarding or rigidity. EXTREMITIES: No clubbing, no edema, no cyanosis, 2+ pulses and upper and lower extremities. MUSCULOSKELETAL: Muscle strength and tone normal. SPINE: No scoliosis or deformity SKIN: No rashes CENTRAL NERVOUS SYSTEM: Alert and oriented -3. No focal deficits, tone is normal in all 4 extremities. PSYCHIATRIC: Alert and oriented -3. Appropriate affect. Intact judgment and insight. - Labs CBC & Chem 7: 09/12/18 04:56 09/12/18 04:56 Labs: Abnormal Lab Results - Last 24 Hours (Table) 09/11/18 09/11/18 09/11/18 Range/Units 04:22 12:28 13:07 RBC (3.80-5.40) m/uL Hgb (11.4-16.0) gm/dL Hct (34.0-46.0) % Sodium 135 L (137-145) mmol/L Potassium 5.7 H (3.5-5.1) mmol/L BUN 51 H (7-17) mg/dL Creatinine 1.39 H (0.52-1.04) mg/dL Glucose (74-99) mg/dL POC Glucose (mg/dL) 313 H (75-99) mg/dL Hemoglobin A1c 11.5 H (4.0-6.0) % Urine Glucose (UA) (Negative) Urine Ketones (Negative) Urine Blood (Negative) Amorphous Sediment (None) /hpf Urine Bacteria (None) /hpf Urine Mucus (None) /hpf 09/11/18 09/11/18 09/11/18 Range/Units 14:20 17:08 21:00 RBC (3.80-5.40) m/uL Hgb (11.4-16.0) gm/dL Hct (34.0-46.0) % Sodium (137-145) mmol/L Potassium (3.5-5.1) mmol/L BUN (7-17) mg/dL Creatinine (0.52-1.04) mg/dL Glucose (74-99) mg/dL POC Glucose (mg/dL) 235 H 235 H (75-99) mg/dL Hemoglobin A1c (4.0-6.0) % Urine Glucose (UA) 3+ H (Negative) Urine Ketones 1+ H (Negative) Urine Blood Trace H (Negative) Amorphous Sediment Rare H (None) /hpf Urine Bacteria Rare H (None) /hpf Urine Mucus Rare H (None) /hpf 09/12/18 09/12/18 09/12/18 Range/Units 04:56 04:56 06:47 RBC 3.27 L (3.80-5.40) m/uL Hgb 9.6 L (11.4-16.0) gm/dL Hct 30.8 L (34.0-46.0) % Sodium (137-145) mmol/L Potassium (3.5-5.1) mmol/L BUN 45 H (7-17) mg/dL Creatinine 1.23 H (0.52-1.04) mg/dL Glucose 305 H (74-99) mg/dL POC Glucose (mg/dL) 363 H (75-99) mg/dL Hemoglobin A1c (4.0-6.0) % Urine Glucose (UA) (Negative) Urine Ketones (Negative) Urine Blood (Negative) Amorphous Sediment (None) /hpf Urine Bacteria (None) /hpf Urine Mucus (None) /hpf 09/12/18 Range/Units 08:00 RBC (3.80-5.40) m/uL Hgb (11.4-16.0) gm/dL Hct (34.0-46.0) % Sodium (137-145) mmol/L Potassium (3.5-5.1) mmol/L BUN (7-17) mg/dL Creatinine (0.52-1.04) mg/dL Glucose (74-99) mg/dL POC Glucose (mg/dL) 340 H (75-99) mg/dL Hemoglobin A1c (4.0-6.0) % Urine Glucose (UA) (Negative) Urine Ketones (Negative) Urine Blood (Negative) Amorphous Sediment (None) /hpf Urine Bacteria (None) /hpf Urine Mucus (None) /hpf Assessment and Plan Plan: Assessment: #1. Acute diabetic ketoacidosis, improved, etiology is possibly related to noncompliance, related to memory impairment. On 09/12/2018, patient had been transitioned to basal insulin and Humalog injections, anion gap has closed #2. Hyperlipidemia #3. History of diabetes mellitus type 1 since the age of 19 #4. History of dementia, on Aricept and Namenda #5. Hypertension #6. Hypothyroidism Plan: Continue current medical treatment, the anion gap has closed, patient has been transitioned to basal insulin and Humalog injections, vital signs are stable, no fever or chills, no complaints of shortness of breath, no specific complaints. Discharge planning is working on long-term ECF placement in view of chronic memory impairment. Otherwise no acute events overnight, his labs have been reviewed, profile is improving, no nausea vomiting or diarrhea. Patient is tolerating oral intake. Stable to transfer out of the intensive care unit today to regular medical surgical floor. Pulmonary/critical care service will sign off and follow on as-needed basis. I performed a history & physical examination of the patient and discussed their management with my nurse practitioner, Aubrie Jung. I reviewed the nurse practitioner's note and agree with the documented findings and plan of care. Lung sounds are positive for clear lung sounds. The findings and the impression was discussed with the patient. I attest to the documentation by the nurse practitioner. Time with Patient: Less than 30
[2018-09-12 12:07] LABS: Glucose,Whole Blood 108 mg/dL (75-99)
[2018-09-12 17:03] LABS: Glucose,Whole Blood 226 mg/dL (75-99)
[2018-09-12 20:13] LABS: Glucose,Whole Blood 255 mg/dL (75-99)
[2018-09-12] MEDS: DONEPEZIL 10 MG TAB PO SCH (20:39)
[2018-09-12] MEDS: ATORVASTATIN 20 MG TAB PO SCH (20:39)
[2018-09-12] MEDS ORDERED: INSULIN DETEMIR (LEVEMIR) 100 UNIT/ML SYR SQ SCH (21:00)
[2018-09-13 05:23] LABS: Basophils % (A) 1 %; Eosinophils # (A) 0.1 k/uL (0-0.7); Eosinophils % (A) 1 %; HCT 32.5 % (34.0-46.0); HGB 10.6 gm/dL (11.4-16.0); Lymphocytes # (A) 1.9 k/uL (1.0-4.8); Lymphocytes % (A) 38 %; MCH 30.7 pg (25.0-35.0); MCHC 32.6 g/dL (31.0-37.0); MCV 94.2 fL (80.0-100.0); Mean Platelet Volume 7.4; Monocytes # (A) 0.4 k/uL (0-1.0); Monocytes % (A) 9 %; Neutrophils # (A) 2.4 k/uL (1.3-7.7); Neutrophils % (A) 48 %; Platelet Count 215 k/uL (150-450); RBC 3.45 m/uL (3.80-5.40); RDW 13.5 % (11.5-15.5); WBC 4.9 k/uL (3.8-10.6)
[2018-09-13 05:34] LABS: Calcium 9.8 mg/dL (8.4-10.2); Potassium 4.2 mmol/L (3.5-5.1)
[2018-09-13 06:20] LABS: Glucose,Whole Blood 81 mg/dL (75-99)
--- NOTE | 2018-09-13 07:20 | P.PN ---
Subjective Progress Note Date: 09/13/18 On 09/13/2018 I'm seeing this patient in the follow-up in the intensive care unit. The patient was admitted for acute DKA. She recovered from her DKA. Her anion gap closed. Nevertheless she has a very brittle blood sugar. At home she takes Trisiba and she was switched to Levemir here in the hospital. She was taking 10 units of Levemir and this was increased up to 15 units to control her blood sugar more tightly and subsequently this morning she developed a hypoglycemic attack with a blood sugar dropped down to 42. The patient was given orange juice and 15 minutes later the blood sugar came up to 81. No seizure activity. No altered mentation. Note that the patient has been a very brittle diabetic. Her blood sugars have been fluctuating between low 100s and as high as 400s. This morning, her anion gap is at 7. Serum bicarbs up to 28. White cell count is at 4.9. She is resting comfortably in bed. She is also taking NovoLog I coverage. The patient has dementia. Upon having further discussion with the family, the is unable to take care of her at home and they're considering placement. She has an bridge design engineer out of town. She is quite rested at this point in time. She is hemodynamically stable. She is tolerating her diet. She finishes approximately 80% of her food provided to her with diet. Objective - Vital Signs Vital signs: Vital Signs Temp 97.9 F 09/13/18 00:27 Pulse 72 09/13/18 00:27 Resp 18 09/13/18 00:27 BP 131/65 09/13/18 00:27 Pulse Ox 98 09/13/18 00:27 Intake & Output 09/12/18 09/13/18 09/13/18 18:59 06:59 18:59 Intake Total 800 Output Total 1200 Balance -1200 800 Weight 79.4 kg Intake: Oral 800 Output: Urine 1200 Other: Voiding Method Bedside Commode Bedside Commode # Voids 1 1 # Bowel Movements 1 - Exam GENERAL EXAM: Alert, pleasant 72-year-old white female room air comfortable in no apparent distress. HEAD: Normocephalic/atraumatic. EYES: Normal reaction of pupils, equal size. Conjunctiva pink, sclera white. NOSE: Clear with pink turbinates. THROAT: No erythema or exudates. NECK: No masses, no JVD, no thyroid enlargement, no adenopathy. CHEST: No chest wall deformity. Symmetrical expansion. LUNGS: Equal air entry with no crackles, wheeze, rhonchi or dullness. CVS: Regular rate and rhythm, normal S1 and S2, no gallops, no murmurs, no rubs ABDOMEN: Soft, nontender. No hepatosplenomegaly, normal bowel sounds, no guarding or rigidity. EXTREMITIES: No clubbing, no edema, no cyanosis, 2+ pulses and upper and lower extremities. MUSCULOSKELETAL: Muscle strength and tone normal. SPINE: No scoliosis or deformity SKIN: No rashes CENTRAL NERVOUS SYSTEM: Alert and oriented -3. No focal deficits, tone is nor mal in all 4 extremities. PSYCHIATRIC: Alert and oriented -3. Appropriate affect. Intact judgment and insight. - Labs CBC & Chem 7: 09/13/18 04:46 09/13/18 04:46 Labs: Abnormal Lab Results - Last 24 Hours (Table) 09/11/18 09/12/18 09/12/18 Range/Units 04:22 08:00 11:53 RBC (3.80-5.40) m/uL Hgb (11.4-16.0) gm/dL Hct (34.0-46.0) % BUN (7-17) mg/dL Creatinine (0.52-1.04) mg/dL Glucose (74-99) mg/dL POC Glucose (mg/dL) 340 H 108 H (75-99) mg/dL Hemoglobin A1c 11.5 H (4.0-6.0) % 09/12/18 09/12/18 09/13/18 Range/Units 16:59 20:10 04:46 RBC 3.45 L (3.80-5.40) m/uL Hgb 10.6 L (11.4-16.0) gm/dL Hct 32.5 L (34.0-46.0) % BUN (7-17) mg/dL Creatinine (0.52-1.04) mg/dL Glucose (74-99) mg/dL POC Glucose (mg/dL) 226 H 255 H (75-99) mg/dL Hemoglobin A1c (4.0-6.0) % 09/13/18 Range/Units 04:46 RBC (3.80-5.40) m/uL Hgb (11.4-16.0) gm/dL Hct (34.0-46.0) % BUN 35 H (7-17) mg/dL Creatinine 1.11 H (0.52-1.04) mg/dL Glucose 42 L* (74-99) mg/dL POC Glucose (mg/dL) (75-99) mg/dL Hemoglobin A1c (4.0-6.0) % Assessment and Plan Plan: #1. Acute diabetic ketoacidosis, improved, the patient has a normal anion gap. Nevertheless the blood sugar is quite brittle and the patient still having significant fluctuation of blood sugar level. Raising the Levemir insulin by 5 units cause a morning hypoglycemia. She is tolerating her diet. No other complaints otherwise for now. #2. Hyperlipidemia #3. History of diabetes mellitus type 1 since the age of 19 #4. History of dementia, on Aricept and Namenda #5. Hypertension #6. Hypothyroidism JUANITA The Levemir down to 10 Units a Day. NovoLog According to Scale Only. She Can Be Transferred Out Of the Intensive Care Unit. Blood Sugars before Meals and at Bedtime. The social media assistant has been consulted and the patient is looking for placement taken account of advanced dementia.
[2018-09-13] MEDS: INSULIN ASPART (NovoLOG) 100 UNIT/ML VIAL SQ SCH ×4 (08:06→21:19)
[2018-09-13] MEDS: HEPARIN SODIUM,PORCINE 5,000 UNIT/ML 1 ML VIAL SQ SCH ×2 (09:48→21:19)
[2018-09-13] MEDS: FAMOTIDINE 20 MG/2 ML VIAL IV SCH (09:49)
[2018-09-13] MEDS: LEVOTHYROXINE 100 MCG TAB PO SCH (09:49)
[2018-09-13] MEDS: ISOSORBIDE MONONITRATE ER 30 MG TAB.ER.24H PO SCH (09:50)
[2018-09-13] MEDS: LISINOPRIL-HCTZ 10-12.5 MG 1 EACH TAB PO SCH (09:50)
[2018-09-13] MEDS: MEMANTINE 10 MG TAB PO SCH ×2 (09:52→21:20)
[2018-09-13] MEDS: SERTRALINE 25 MG TAB PO SCH (09:52)
[2018-09-13 11:45] LABS: Glucose,Whole Blood 227 mg/dL (75-99)
--- NOTE | 2018-09-13 12:04 | P.PN ---
Subjective This is a pleasant 72 years old female with past medical history of dementia/memory impairment, diabetes mellitus, hypothyroidism, coronary artery d isease status post stent placement. Patient presents because her found her with altered mental status in the morning and he called 911. Patient states that she follows up with Dr. West's Marilee who changed her insulin regimen treated recently because her sugar was uncontrolled, she is taking no follow-up with sliding scale plus Tarceva insulin 10 units at bedtime. As per she has been forgetting to take her insulin at times, and other times she weighs 41- 2 hours before she takes her insulin. Yesterday morning patient says that she will cover and she was feeling tired she takes her sugar wasn't 400 but instead of taking her insulin she went back to sleep before her found her with altered mental status. Patient denies chest pain or dyspnea. No change in urine or bowel habits. No rash or redness. No headache or weakness or abnormal sensation. No coughing or respiratory symptoms. No dysuria. No fever Patient vitals stable, on admission her labs were abnormal showing increased creatinine of 1.7, unknown baseline, carbon dioxide 9, sugar was 957 elevated, anion gap was within normal limits at 28, sodium 128 in view of hyperglycemia, serum osmolalities elevated at 323, liver enzymes not elevated. Troponin is negative. And after therapy currently her creatinine came down to 1.5, sodium 135, glucose 107-172. EKG showing atrial paced rhythm. Chest x-ray: No acute process. On admission patient was admitted to the ICU, she was treated with IV fluids and insulin drip as per protocol. Patient showed interval improvement. 09/12/2018 Patient feels dizzy but no other complaint. She denies chest pain or dyspnea. No abdominal pain. No change in urine or bowel habits. Her vitals looks stable. Hemoglobin is stable at 9.6. Creatinine is coming down to 1.2. She remains in the ICU currently and her sugar has been running in 300, she got 10 units this morning of Levemir and they going to increase the dose to 15 units tonight as well as 5 units with meals. Discussed with patient and are still interested in physical therapy evaluation and possible ECF placement for long-term care versus rehab, As patient has memory impairment which affects her ability to take her medication. powder worker was consulted 09/13/2018 Patient remains in the ICU as overflow case. No new complaints. Her sugar this morning was on the low side at 40 to do the blood tests, and after has been replaced orally 2281/227. Her Levemir dose lower extremity from 15 down to 10 units at bedtime. With sliding scale. After glucose stabilization patient can be discharged however we think she needs ECF because of her memory problem. powder worker on the case trying to get approval. It is discussed with the high school social studies teacher Rony, and it is unknown if her insurance company will approve her transfer to ECF. Creatinine improved down to 1.1 Discussed with staff Objective - Vital Signs Vital signs: Vital Signs Temp 98.1 F 09/13/18 09:00 Pulse 82 09/13/18 09:00 Resp 20 09/13/18 09:00 BP 157/62 09/13/18 09:00 Pulse Ox 97 09/13/18 09:00 Intake & Output 09/12/18 09/13/18 09/13/18 18:59 06:59 18:59 Intake Total 800 Output Total 1200 Balance -1200 800 Weight 79.4 kg Intake: Oral 800 Output: Urine 1200 Other: Voiding Method Bedside Commode Bedside Commode Bedside Commode # Voids 1 1 # Bowel Movements 1 - Exam GENERAL: The patient is alert and oriented x3, not in any acute distress. Well developed, well nourished. HEENT: Pupils are round and equally reacting to light. EOMI. No scleral icterus. No conjunctival pallor. Normocephalic, atraumatic. No pharyngeal erythema. No thyromegaly. CARDIOVASCULAR: S1 and S2 present. No murmurs, rubs, or gallops. PULMONARY: Chest is clear to auscultation, no wheezing or crackles. ABDOMEN: Soft, nontender, nondistended, normoactive bowel sounds. No palpable organomegaly. MUSCULOSKELETAL: No joint swelling or deformity. EXTREMITIES: No cyanosis, clubbing, or pedal edema. NEUROLOGICAL: Gross neurological examination did not reveal any focal deficits. SKIN: No rashes. - Labs CBC & Chem 7: 09/13/18 04:46 09/13/18 04:46 Labs: Abnormal Lab Results - Last 24 Hours (Table) 09/12/18 09/12/18 09/12/18 Range/Units 11:53 16:59 20:10 RBC (3.80-5.40) m/uL Hgb (11.4-16.0) gm/dL Hct (34.0-46.0) % BUN (7-17) mg/dL Creatinine (0.52-1.04) mg/dL Glucose (74-99) mg/dL POC Glucose (mg/dL) 108 H 226 H 255 H (75-99) mg/dL 09/13/18 09/13/18 09/13/18 Range/Units 04:46 04:46 11:42 RBC 3.45 L (3.80-5.40) m/uL Hgb 10.6 L (11.4-16.0) gm/dL Hct 32.5 L (34.0-46.0) % BUN 35 H (7-17) mg/dL Creatinine 1.11 H (0.52-1.04) mg/dL Glucose 42 L* (74-99) mg/dL POC Glucose (mg/dL) 227 H (75-99) mg/dL Assessment and Plan Assessment: Diabetic ketoacidosis, anion gap is closed . Resolved Diabetes mellitus with uncontrolled hypercalcemia. Dementia/memory impairment Hyperkalemia, resolved Acute kidney injury, improving Pseudohyponatremia, related to hyperglycemia. Hypothyroidism Essential hypertension Hyperlipidemia History of depression Plan: This is a pleasant 72 years old female who presents with DKA, Levemir dose was lowered to 10 units because of hypoglycemia. Follow-up sugar level closely. Encourage oral hydration. Resume diet. I discussed the importance of adherence to therapy and patient both verbalize understanding and acceptance. I discussed the need for care for the patient and the thinks patient needs to group home placement, the would consider it as well. We'll call high school social studies teacher as well as physical therapy evaluation. Labs and medication were reviewed.. Continue same treatment. Continue with symptomatic treatment. Resume home medication. Monitor lytes and vitals. DVT and GI prophylaxis. Further recommendations of the clinical course of the patient powder worker on the case for placement DVT prophylaxis: Subcutaneous heparin GI Prophylaxis: Pepcid PT/OT: Pending Prognosis is guarded
[2018-09-13 17:05] LABS: Glucose,Whole Blood 371 mg/dL (75-99)
[2018-09-13] MEDS ORDERED: INSULIN DETEMIR (LEVEMIR) 100 UNIT/ML SYR SQ SCH (21:00)
[2018-09-13 21:15] LABS: Glucose,Whole Blood 234 mg/dL (75-99)
[2018-09-13] MEDS: DONEPEZIL 10 MG TAB PO SCH (21:19)
[2018-09-13] MEDS: ATORVASTATIN 20 MG TAB PO SCH (21:19)
[2018-09-14 06:55] LABS: Glucose,Whole Blood 53 mg/dL (75-99)
[2018-09-14] MEDS: INSULIN ASPART (NovoLOG) 100 UNIT/ML VIAL SQ SCH ×2 (06:57→12:14)
[2018-09-14] MEDS: LEVOTHYROXINE 100 MCG TAB PO SCH (07:07)
[2018-09-14 07:27] LABS: Glucose,Whole Blood 57 mg/dL (75-99)
[2018-09-14 07:50] LABS: Glucose,Whole Blood 83 mg/dL (75-99)
[2018-09-14] MEDS ORDERED: FAMOTIDINE 20 MG TAB PO SCH (09:00)
[2018-09-14] MEDS: HEPARIN SODIUM,PORCINE 5,000 UNIT/ML 1 ML VIAL SQ SCH (09:08)
[2018-09-14] MEDS: ISOSORBIDE MONONITRATE ER 30 MG TAB.ER.24H PO SCH (09:08)
[2018-09-14] MEDS: LISINOPRIL-HCTZ 10-12.5 MG 1 EACH TAB PO SCH (09:08)
[2018-09-14] MEDS: SERTRALINE 25 MG TAB PO SCH (09:09)
[2018-09-14] MEDS: MEMANTINE 10 MG TAB PO SCH (09:09)
[2018-09-14 10:04] VITALS: BP 120/58; PULSE 80; RESP 16; TEMP 97.9
--- NOTE | 2018-09-14 11:02 | P.DS ---
Providers Date of admission: 09/10/18 15:53 Attending physician: Reece Marie MD Consults: 09/10/18 16:21 Consult Physician Urgent Consulting Provider: Dominic Childs Reason/Comments: critical care Do you want consulting provider notified?: Already Contacted Primary care physician: Physician Nonstaff Hospital Course: Diagnoses: Diabetic ketoacidosis, anion gap is closed . Resolved Diabetes mellitus with uncontrolled hypercalcemia. Dementia/memory impairment Nonadherence to treatment, related to her dementia Hyperkalemia, resolved Acute kidney injury, improving Pseudohyponatremia, related to hyperglycemia. Hypothyroidism Essential hypertension Hyperlipidemia History of depression Hospital course: This is a pleasant 72 years old female with past medical history of dementia/memory impairment, diabetes mellitus, hypothyroidism, coronary artery disease status post stent placement. Patient presents because her found her with altered mental status in the morning and he called 911. On admission patient was found to be in DKA and she was admitted to the ICU with treatment with insulin drip as per protocol. Her and her gap has closed and patient returned back to her basic mental status. Patient was placed on long acting insulin at bedtime however she was developing hypoglycemia bead picker while hyperglycemia ureters of the day, so her Levemir switched to 10 units daily in the a.m. however patient needed extra 13 units of regular insulin, therefore we going to increase her dose of Levemir to 15 units daily. Currently patient is fully awake and oriented to time place and person and surrounding and she knows why in the hospital however she has memory lapses related to her dementia. Also she was treated with IV fluids for dehydration and elevated creatinine came back to usual level of 1.11. Because of her memory problem patient and think she will need placement however patient is not a candidate for ECF placement or rehab because she is moving physically with no problem, and her medical insurance denied her to be transferred to ECF for placement. As an alternative patient is going to be sent to Assisted living. Case was discussed with case coordinator on the case, and it looks like the is willing for self-pay to [facility] for a couple weeks and from there patient will be going to assisted living A day of discharge patient is asymptomatic with no chest pain. No dyspnea. No change in urine or bowel habits. No fever. Patient is eager to be discharged. Problems and management plan were discussed with the patient and he verbalized understanding and acceptance. at bedside. Patient was found stable and can be discharged home however he needs follow-up as an outpatient. Patient was instructed to follow up with her PCP in one week. Gen: patient is a AAOx3, no distress CVS: S1-S2, RRR, no murmur Lungs: B/L CTA, no wheezing Abdomen: soft, no distention, no tenderness, positive bowel sounds Extremity: no leg edema or induration Time spent more than 35 minutes Patient Condition at Discharge: Serious Plan - Discharge Summary New Discharge Prescriptions: No Action Sertraline [Zoloft] 25 mg PO DAILY Donepezil [Aricept] 10 mg PO HS Memantine HCl [Memantine HCl ER] 28 mg PO DAILY Lisinopril-Hctz 10-12.5 mg [Zestoretic 10-12.5] 0.5 tab PO DAILY Isosorbide Mononitrate ER [Imdur] 30 mg PO DAILY Insulin Degludec [Tresiba] 10 units SQ HS Levothyroxine Sodium [Synthroid] 200 mcg PO DAILY INSULIN ASPART (NovoLOG) [NovoLOG (formulary)] See Protocol SQ TID Simvastatin 40 mg PO HS Discharge Medication List Donepezil [Aricept] 10 mg PO HS 09/10/18 [History] INSULIN ASPART (NovoLOG) [NovoLOG (formulary)] See Protocol SQ TID 09/10/18 [History] Insulin Degludec [Tresiba] 10 units SQ HS 09/10/18 [History] Isosorbide Mononitrate ER [Imdur] 30 mg PO DAILY 09/10/18 [History] Levothyroxine Sodium [Synthroid] 200 mcg PO DAILY 09/10/18 [History] Lisinopril-Hctz 10-12.5 mg [Zestoretic 10-12.5] 0.5 tab PO DAILY 09/10/18 [History] Memantine HCl [Memantine HCl ER] 28 mg PO DAILY 09/10/18 [History] Sertraline [Zoloft] 25 mg PO DAILY 09/10/18 [History] Simvastatin 40 mg PO HS 09/10/18 [History] Follow up Appointment(s)/Referral(s): Nonstaff,Physician [Primary Care Provider] - 1-2 days [facility] Visiting Nurse, [NON-STAFF] - 1 Week
[2018-09-14 12:10] LABS: Glucose,Whole Blood 372 mg/dL (75-99)
[2018-09-15] MEDS ORDERED: INSULIN DETEMIR (LEVEMIR) 100 UNIT/ML SYR SQ SCH (07:00)
== END 2018-09-14 15:00 | DRG 638 ==
LOC: EC 13:31 → 2SICU 15:53
PROVIDERS: ADMIT Internal Medicine; ATTEND Internal Medicine
DX: E10.10 Type 1 diabetes mellitus with ketoacidosis without coma (principal); N17.9 Acute kidney failure, unspecified; E87.5 Hyperkalemia; E86.0 Dehydration; F03.90 Unspecified dementia, unspecified severity, without behavioral disturbance, psychotic disturbance, mood disturbance, and anxiety; E03.9 Hypothyroidism, unspecified; E78.5 Hyperlipidemia, unspecified; F32.9 Major depressive disorder, single episode, unspecified; F41.9 Anxiety disorder, unspecified; I10 Essential (primary) hypertension; I25.10 Atherosclerotic heart disease of native coronary artery without angina pectoris; Z79.4 Long term (current) use of insulin; Z79.890 Hormone replacement therapy; Z79.899 Other long term (current) drug therapy; Z91.041 Radiographic dye allergy status; Z95.5 Presence of coronary angioplasty implant and graft; Z91.14 Patient's other noncompliance with medication regimen; Z82.49 Family history of ischemic heart disease and other diseases of the circulatory system
CPT/HCPCS: 36415; 71046; 80048; 80051; 80053; 81001; 82009; 82565; 82947; 83036; 83735; 83930; 84100; 84484; 84520; 85025; 85027; 93005; 96360; 96361; 99291